=== PATIENT | female | born 1970 | race Caucasian/White ===

== ENCOUNTER 2020-11-01 13:33 | Emergency (ER) | payer BC, OTHER, SELFPAY ==
[2020-11-01 13:37] VITALS: BP 143/91; PULSE 82; RESP 16; TEMP 36.1; O2SAT 100
--- NOTE | 2020-11-01 14:25 | ED.GENADULT ---
HPI - General Adult General Chief complaint: Wound/Laceration Stated complaint: scar open Time Seen by Provider: 11/01/20 13:43 Source: patient Mode of arrival: ambulatory Limitations: no limitations History of Present Illness HPI narrative: Patient presents with chief complaint of erythema and some drainage that began yesterday in the area of her healed scar from 15 years ago. Patient reports some mild tenderness. She denies any fevers, chills, nausea, vomiting, diarrhea. Patient denies history of MRSA. Or diabetes. Patient is allergic to penicillin. Patient states she has been cleaning the area with alcohol and applying a bandage. Related Data Allergies Allergy/AdvReac Type Severity Reaction Status Date / Time Penicillins Allergy Unknown Verified 01/22/11 13:37 Review of Systems Review of Systems: Narrative: CONSTITUTIONAL: Denies fever, chills, or sweats. EYES: Denies visual changes, redness, or discharge. ENT: Denies rhinorrhea, congestion, sore throat, or otalgia. CARDIOVASCULAR: Denies chest pain, palpitations, or edema. RESPIRATORY: Denies cough or dyspnea. GASTROINTESTINAL: Denies abdominal pain, nausea, vomiting, or diarrhea. GENITOURINARY: Denies dysuria or hematuria. SKIN: Reports swelling and drainage denies rash or itching. MUSCULOSKELETAL: Denies back pain, joint pain, or myalgia. NEUROLOGIC: Denies headache, numbness, dizziness, or weakness. PSYCHIATRIC: Denies anxiety or depression. [facility] Family History Family History (Updated 04/21/14 @ 07:13 by DOCTOR UNKNOWN) Mother Hypertension Family history of gallbladder disease Father Carcinoma of colon Grandparent Carcinoma of colon Other Diabetes mellitus Family history of cardiovascular disease Social History Social History Alcohol intake: current Exam Narrative: Exam Narrative: GENERAL: Well-appearing, well-nourished, and in no acute distress. HEAD: Normocephalic, atraumatic. EYES: PERRLA and EOMI. ENT: Nares clear, no rhinorrhea or epistaxis. Mucous membranes moist. Oropharynx without tonsillar hypertrophy exudate or other lesions. Bilateral TMs pearly waldrop nonbulging NECK: Supple. No adenopathy or masses. CHEST: Clear to auscultation. No respiratory distress. No wheezes rales or rhonchi HEART: Regular rate and rhythm. EXTREMITIES: Normal range of motion. No edema. SKIN: Mild erythema to the right side of the abdominal crease in area where patient had horizontal csection. No palpable underlying abscess noted. 2 pustules areas with mild erythema that have opened. Minimal serous fluid drainage. warm, dry, no rash. NEURO: No focal deficits. Alert and oriented x3. PSYCH: Normal mood and affect. Course Vital Signs Vital signs: Vital Signs Temperature 97.0 F L 11/01/20 13:37 Pulse Rate 82 11/01/20 13:37 Respiratory Rate 16 11/01/20 13:37 Blood Pressure 143/91 H 11/01/20 13:37 Pulse Oximetry 100 11/01/20 13:37 Temperature 97.0 F L 11/01/20 13:37 Pulse Rate 82 11/01/20 13:37 Respiratory Rate 16 11/01/20 13:37 Blood Pressure 143/91 H 11/01/20 13:37 Pulse Oximetry 100 11/01/20 13:37 Medical Decision Making MDM Narrative Medical decision making narrative: Patient does not have any signs of abscess or fistula. Patient has very superficial cellulitis in the skin fold. Patient. Keep area clean and dry and prescribed antibiotic. Patient instructed to follow-up with her primary care for reevaluation of the area within 1 week. Patient instructed to return to the emergency department if she has any emergent symptoms. Differential Diagnosis Differential Diagnosis: Cellulitis, abscess, fistula, wound dehiscence Vital Signs Vital Signs: Vital Signs Temperature 97.0 F L 11/01/20 13:37 Pulse Rate 82 11/01/20 13:37 Respiratory Rate 16 11/01/20 13:37 Blood Pressure 143/91 H 11/01/20 13:37 Pulse Oximetry 100 11/01/20 13:37 Temperature 97.0 F L 11/01/20 13:37 P
== END 2020-11-01 15:21 | disposition home or self-care (01) ==
PROVIDERS: Emergency Provider Emergency Medicine; PCP Physician Assistant
DX: N73.2 Unspecified parametritis and pelvic cellulitis (principal)
CPT/HCPCS: 99283

== ENCOUNTER → 2021-04-27 13:30 | Outpatient (CLI) | payer BC, OTHER, SELFPAY ==
--- NOTE | ~2021-04-27 | MM_ITS ---
EXAMINATION: MM screening alcides BI w jennifer HISTORY: Screening TECHNIQUE: Craniocaudal and mediolateral oblique 3-D tomosynthesis images were obtained and synthetic 2-D images were generated. CAD analysis was submitted and interpreted. COMPARISON: No prior mammogram is available for comparison at this institution. BREAST PARENCHYMAL COMPOSITION: There are scattered areas of fibroglandular density. FINDINGS: There is a mass in the right breast with associated tissue marker, consistent with previous benign biopsy. There is no evidence of suspicious mass, calcification, or architectural distortion t o suggest malignancy in either breast. There has been no suspicious interval change. IMPRESSION: 1. No mammographic evidence of malignancy. 2. Recommend routine screening mammography in one year. BI-RADS Category 2: Benign finding(s). Reviewed, dictated and finalized at location A.
== END ==
PROVIDERS: PCP Physician Assistant; Visit Provider Physician Assistant
DX: Z12.31 Encounter for screening mammogram for malignant neoplasm of breast (principal)
CPT/HCPCS: 77063; 77067

== ENCOUNTER → 2022-08-30 15:24 | Outpatient (CLI) | payer BC, OTHER, SELFPAY ==
--- NOTE | ~2022-08-30 | MM_ITS ---
EXAMINATION: MM screening alcides BI w jennifer HISTORY: Screening mammogram TECHNIQUE: Craniocaudal and mediolateral oblique 3-D tomosynthesis images were obtained and synthetic 2-D images were generated. CAD analysis was submitted and interpreted. COMPARISON: 04/27/2021 BREAST PARENCHYMAL COMPOSITION: There are scattered areas of fibroglandular density. FINDINGS: RIGHT BREAST: There is a stable mass with biopsy change in the upper right breast. No suspicious mass , calcification, or architectural distortion are identified to suggest malignancy. There has been no suspicious interval change. LEFT BREAST: There is a possible mass in the middle third of the upper breast best appreciated 8.5 cm from the nipple on the mediolateral oblique view. IMPRESSION: 1. Possible left breast mass. 2. Additional mammographic views and possible breast ultrasound are recommended. BI-RADS Category 0: Incomplete: Needs additional imaging evaluation. Reviewed, dictated and finalized at location A. AMURAL DIRECTOR IMPRESSION: 1. Possible left breast mass. 2. Additional mammographic views and possible breast ultrasound are recommended . BI-RADS Category 0: Incomplete: Needs additional imaging evaluation.
== END ==
PROVIDERS: PCP Family Medicine; Visit Provider Advanced Practice Midwife
DX: Z12.31 Encounter for screening mammogram for malignant neoplasm of breast (principal); R92.8 Other abnormal and inconclusive findings on diagnostic imaging of breast
CPT/HCPCS: 77063; 77067

== ENCOUNTER → 2022-09-24 07:37 | Outpatient (CLI) | payer BC, SELFPAY ==
--- NOTE | ~2022-09-24 | MMUS_ITS ---
EXAMINATION: MM diagnostic alcides LT w jennifer, US breast LT limited HISTORY: Follow-up possible left breast mass TECHNIQUE: Additional 3-D tomosynthesis images of the left breast were performed and synthetic 2-D im ages were generated. CAD analysis was submitted and interpreted. High resolution Limited left breast ultrasound was performed. COMPARISON: 08/30/2022 and 04/27/2021 BREAST PARENCHYMAL COMPOSITION: Breast composed of scattered areas of fibroglandular density FINDINGS: MAMMOGRAPHIC FINDINGS: There are no suspicious masses, calcifications or architectural distortion in the left breast. The ar ea of asymmetry compresses with spot view. ULTRASOUND: Limited left breast ultrasound: Normal heterogeneous echotexture without focal solid or cystic mass. IMPRESSION: 1. No evidence for malignancy in the left breast. 2. Routine yearly screening mammogram and regular clinical breast examination are recommended. BI-RADS Category 1: Negative Reviewed, dictated and finalized at location A. F NURSE MIDWIFE IMPRESSION: 1. No evidence for malignancy in the left breast. 2. Routine yearly screening mammogram and regular clinical breast examination a re recommended. BI-RADS Category 1: Negative
== END ==
PROVIDERS: PCP Physician Assistant; Visit Provider Advanced Practice Midwife
DX: R92.8 Other abnormal and inconclusive findings on diagnostic imaging of breast (principal)
CPT/HCPCS: 76642; 77061; 77065; G0279

== ENCOUNTER 2023-07-28 02:26 | Day surgery (SDC) | payer OTHER, SELFPAY ==
[2023-07-10 13:51] VITALS: BMI 37.1
--- NOTE | 2023-07-25 10:45 | SUR.PREOP ---
Patient called regarding upcoming procedure. Reviewed preop instructions, appointment times, and procedure prep.
[2023-07-28 08:16] VITALS: BMI 37.8
[2023-07-28 08:19] VITALS: BP 109/67; PULSE 72; RESP 18; TEMP 36.7; O2SAT 100
[2023-07-28] MEDS: LACTATED RINGERS 1,000 ML 150 ML IV CONT (08:26)
--- NOTE | 2023-07-28 09:08 | PM.HPGS ---
History of Present Illness History of Present Illness Consent: Risks, benefits, and alternatives have been discussed and questions answered. Patient agrees to proceed with procedure. Chief complaint: fam hx of colon ca, hx of colon polyps Narrative: Meghann Johnson is a 53 year old female Presents for screening colonoscopy. Patient reports that her current weight appetite and bowel movements are normal. Patient denies abdominal pain. She has had no bleeding. Family history is significant both her father and paternal grandmother have had colon cancer. Patient was found to have adenomatous colon polyp in 2013 herself. Review of Systems Review of Systems: Review of systems noncontributory. [facility] Family History Family History (Updated 04/21/14 @ 07:13 by DOCTOR UNKNOWN) Mother Hypertension Family history of gallbladder disease Father Carcinoma of colon Grandparent Carcinoma of colon Other Diabetes mellitus Family history of cardiovascular disease Social History Social History Smoking status: Never smoker Alcohol intake: current Drinks per week: 2 Alcohol use details: wine Substance use type: does not use Living arrangements: with family Spiritual care concerns: No Meds Home Medications and Allergies Home Medications Medication Instructions Recorded Confirmed Type multivitamin with minerals-folic 1 tablet PO DAILY 07/10/23 07/28/23 History acid 0.4 mg tablet semaglutide (weight loss) 1.7 1.7 mg subcut WEEKLY 07/10/23 07/28/23 History mg/0.75 mL subcutaneous pen injector Allergies Allergy/AdvReac Type Severity Reaction Status Date / Time Penicillins Allergy Unknown Other Verified 07/28/23 08:14 Vital Signs Vital Signs - 24 hr 07/28/23 08:19 Temperature 98.0 F Pulse Rate 72 Respiratory Rate 18 Blood Pressure 109/67 Pulse Oximetry 100 Oxygen Delivery Room Air Exam Narrative: Physical exam reveals patient to be alert. Vital signs stable. HEENT exam is unremarkable. Patient is anicteric. Lungs are clear to auscultation and percussion. Heart is without murmur or extra sounds. Abdomen bowel sounds are present soft nontender with no organomegaly. Digital external rectal exam normal. Assessment and Plan Assessment and plan (1) Family history of colon cancer in father: Code(s): Z80.0 - Family history of malignant neoplasm of digestive organs Status: Acute Assessment and Plan: patient's father had colon cancer. As well as paternal grandmother. Plan for surveillance colonoscopy at 5 year intervals. (2) History of colon polyps: Code(s): Z86.010 - Personal history of colonic polyps Status: Acute Assessment and Plan: Patient does have a prior history of colon polyps in the past.
--- NOTE | 2023-07-28 09:16 | P.PNAN_ITS ---
Anes - Initial Pre Proc Eval Procedure: Operation Date: 07/28/23 09:30 Proposed Procedures p Colonoscopy - Vic Cavazos MD Date/Time: 07/28/23 09:16 Surgeon: Vic Cavazos MD Pre Op Diagnosis: fam hx of colon ca, hx of colon polyps Patient Data Age: 53 Gender: F Height: 1.68 m Weight: 106.3 kg Last Vital Signs Temp 98.0 F 07/28/23 08:19 Pulse 72 07/28/23 08:19 Resp 18 07/28/23 08:19 BP 109/67 07/28/23 08:19 Pulse Ox 100 07/28/23 08:19 O2 Del Method Room Air 07/28/23 08:19 Allergies Allergy/AdvReac Type Severity Reaction Status Date / Time Penicillins Allergy Unknown Other Verified 07/28/23 08:14 Home Medications Medication Instructions Recorded Confirmed Type multivitamin with minerals-folic 1 tablet PO DAILY 07/10/23 07/28/23 History acid 0.4 mg tablet semaglutide (weight loss) 1.7 1.7 mg subcut WEEKLY 07/10/23 07/28/23 History mg/0.75 mL subcutaneous pen injector Patient hx anesthesia problems: none Family hx anesthesia problems: none Results Review: All pre-operative results and documents have been reviewed as part of the pre- operative evaluation. [facility] Family History Family History (Updated 04/21/14 @ 07:13 by DOCTOR UNKNOWN) Mother Hypertension Family history of gallbladder disease Father Carcinoma of colon Grandparent Carcinoma of colon Other Diabetes mellitus Family history of cardiovascular disease Social History Social History Smoking status: Never smoker Alcohol intake: current Drinks per week: 2 Alcohol use details: wine Substance use type: does not use Living arrangements: with family Spiritual care concerns: No Anes - Eval Final PreProcedure Day of Procedure 07/28/23 09:16 Patient weight: obese Heart: regular rate and rhythm Lungs: clear to auscultation Airway: Mallampati scale class II Neurological: alert and oriented Last oral intake: >/= 8 hours ASA classification: II Emergent: no Anesthetic plan: proceed Anesthesia type and monitoring: general GIVS and standard monitoring Results Review: All pre-operative results and documents have been reviewed as part of the pre-operative evaluation. Informed Consent: The patient's anesthetic plan and its attendant risks and benefits were discussed with the patient/family/POA. Questions were solicited and answers provided to the satisfaction of the patient/family/POA.
[2023-07-28 10:02] VITALS: BP 101/55; PULSE 70; RESP 24; O2SAT 97
[2023-07-28 10:12] VITALS: BP 105/58; PULSE 69; RESP 21; O2SAT 98
[2023-07-28 10:22] VITALS: BP 110/69; PULSE 64; RESP 20; O2SAT 98
== END 2023-07-28 10:28 | disposition home or self-care (01) ==
PROVIDERS: PCP Physician Assistant; Visit Provider Internal Medicine Gastroenterology
PROC: 0DJD8ZZ Inspection of Lower Intestinal Tract, Via Natural or Artificial Opening Endoscopic (ICD-10-PCS; CPT 45378; principal; 2023-07-28 09:30)
DX: Z12.11 Encounter for screening for malignant neoplasm of colon (principal); Z86.010 Personal history of colon polyps; Z80.0 Family history of malignant neoplasm of digestive organs; K64.8 Other hemorrhoids
CPT/HCPCS: 45378; J2001; J2704; J7120

== ENCOUNTER → 2023-09-02 14:44 | Outpatient (CLI) | payer OTHER, SELFPAY ==
--- NOTE | ~2023-09-02 | MM_ITS ---
EXAMINATION: MM screening alcides BI w jennifer HISTORY: Screening mammogram TECHNIQUE: Craniocaudal and mediolateral oblique 3-D tomosynthesis images were obtained and synthetic 2-D images were generated. CAD analysis was submitted and interpreted. COMPARISON: 09/24/2022, 08/30/2022, 04/27/2021 BREAST PARENCHYMAL COMPOSITION: There are scattered areas of fibroglandular density. FINDINGS: There is a stable mass with biopsy change in the right breast. No suspicious mass, calcific ation, or architectural distortion are identified in either breast to suggest malignancy. There has b een no suspicious interval change. IMPRESSION: 1. No mammographic evidence of malignancy. 2. Recommend routine screening mammography in one year. BI-RADS Category 2: Benign finding(s). Reviewed, dictated and finalized at location A. TING COAL MINER
== END ==
PROVIDERS: PCP Advanced Practice Midwife; Visit Provider Advanced Practice Midwife
DX: Z12.31 Encounter for screening mammogram for malignant neoplasm of breast (principal)
CPT/HCPCS: 77063; 77067

== ENCOUNTER 2024-05-11 14:55 | Emergency (ER) | payer OTHER, SELFPAY ==
[2024-05-11 14:57] VITALS: BP 138/88; PULSE 93; RESP 20; TEMP 36.6; O2SAT 97
--- NOTE | 2024-05-11 16:27 | ED.SKABFB ---
HPI - Skin/Abscess/Foreign Bdy General Chief complaint: Skin/Abscess/Foreign Body Stated complaint: skin infection Time Seen by Provider: 05/11/24 16:16 Source: patient Mode of arrival: ambulatory Limitations: no limitations History of Present Illness HPI narrative: This is a 54-year-old female who presents to the ED for chief complaint of possible skin infection to the lower abdomen / pelvis area. Patient reports over the last couple today she has noticed an open sore that overlies her old for many years ago. States that she started to notice some a surrounding redness your the store today. It states that it really has not been overly painful or itchy. Denies discharge. Denies fevers, chills, nausea, vomiting Related Data Home Medications Medication Instructions Recorded Confirmed multivitamin with minerals-folic 1 tablet PO DAILY 07/10/23 07/28/23 acid 0.4 mg tablet semaglutide (weight loss) 1.7 1.7 mg subcut WEEKLY 07/10/23 07/28/23 mg/0.75 mL subcutaneous pen injector Allergies Allergy/AdvReac Type Severity Reaction Status Date / Time Penicillins Allergy Unknown Other Verified 07/28/23 08:14 Review of Systems Review of Systems: All systems as dictated in [facility] Family History Family History (Updated 04/21/14 @ 07:13 by DOCTOR UNKNOWN) Mother Hypertension Family history of gallbladder disease Father Carcinoma of colon Grandparent Carcinoma of colon Other Diabetes mellitus Family history of cardiovascular disease Social History Social History Smoking status: Never smoker Alcohol intake: current Drinks per week: 2 Alcohol use details: wine Substance use type: does not use Living arrangements: with family Spiritual care concerns: No Exam Narrative: GENERAL: Well-appearing, well-nourished, and in no acute distress. HEAD: Normocephalic, atraumatic. EYES: PERRLA and EOMI. ENT: Nares clear, no rhinorrhea or epistaxis. Mucous membranes moist. Oropharynx without tonsillar hypertrophy exudate or other lesions. NECK: Supple. No adenopathy or masses. CHEST: No respiratory distress. Clear to auscultation. No wheezes rales or rhonchi HEART: Regular rate and rhythm. No murmur heard. Normal peripheral pulses. ABDOMEN: Soft, nontender, nondistended, normal active bowel sounds. MSK: Normal range of motion. No edema. SKIN: 1 cm superficial open sore to the overlying mid area of the lower abdomen. surgical incision looks otherwise intact. There is no discharge. There is mild erythema but no swelling or focal fluid collection. No induration NEURO: Alert and oriented x4. No focal deficits. PSYCH: Normal mood and affect. Course Vital Signs Vital signs: Vital Signs Temperature 97.9 F 05/11/24 14:57 Pulse Rate 93 05/11/24 14:57 Respiratory Rate 20 05/11/24 14:57 Blood Pressure 138/88 05/11/24 14:57 Pulse Oximetry 97 05/11/24 14:57 Oxygen Delivery Room Air 05/11/24 14:57 Temperature 98.5 F 05/11/24 17:06 Pulse Rate 75 05/11/24 17:06 Respiratory Rate 18 05/11/24 17:06 Blood Pressure 125/74 05/11/24 17:06 Pulse Oximetry 100 05/11/24 17:06 Oxygen Delivery Room Air 05/11/24 14:57 MDM - Skin/Abscess/Foreign Bdy MDM Narrative Medical decision making narrative: This is a 54-year-old female who presents to the ED with chief complaint of possible skin infection to the lower abdomen. Vitals are normal. Exam shows very small superficial open wound and a skin fold with mild amount of surrounding erythema. Does not appear directly consistent with a yeast infection but very possible due to the location of the redness. No discharge noted. No abscess noted as well. Low suspicion for deep space infection. Cover with Rx for clindamycin as well as clotrimazole topically. Pt will be discharged in stable condition. Return precautions given and supportive measures discussed. Pt is understandi
[2024-05-11 17:06] VITALS: BP 125/74; PULSE 75; RESP 18; TEMP 36.9; O2SAT 100
== END 2024-05-11 17:07 | disposition home or self-care (01) ==
LOC: ANHED 16:39
PROVIDERS: Emergency Provider Physician Assistant; PCP Physician Assistant
DX: L03.311 Cellulitis of abdominal wall (principal); Z79.85 Long-term (current) use of injectable non-insulin antidiabetic drugs
CPT/HCPCS: 99283

== ENCOUNTER 2024-09-07 07:26 | Outpatient (CLI) | payer OTHER, SELFPAY ==
--- NOTE | ~2024-09-07 | MM_ITS ---
EXAMINATION: MM screening alcides BI w jennifer HISTORY: Screening mammogram TECHNIQUE: Craniocaudal and mediolateral oblique 3-D tomosynthesis images were obtained and synthetic 2-D images were generated. CAD analysis was submitted and interpreted. COMPARISON: 09/02/2023, 08/30/2022, 04/27/2021 BREAST PARENCHYMAL COMPOSITION:Not Dense. The breasts are almost entirely fatty FINDINGS: Stable small right breast mass with biopsy clip. No suspicious mass, calcification, or arch itectural distortion are identified in either breast to suggest malignancy. There has been no suspici ous interval change. IMPRESSION: No mammographic evidence of malignancy. Recommend routine screening mammography in one year. BI-RADS Category 2: Benign finding(s). Reviewed, dictated and finalized at [facility]. SITION OPERATOR
== END 2024-09-07 07:27 | disposition home or self-care (01) ==
PROVIDERS: PCP Nurse Practitioner; Visit Provider Physician Assistant
DX: Z12.31 Encounter for screening mammogram for malignant neoplasm of breast (principal)
CPT/HCPCS: 77063; 77067

== ENCOUNTER 2025-05-10 12:48 | Emergency (ER) | payer OTHER, SELFPAY ==
--- NOTE | ~2025-05-10 | XR_ITS ---
X-rays left ankle Indication: Pain Comparison: None Technique: 4 views left ankle Findings/Impression: 1. Tiny avulsion fracture lateral malleolus not excluded. 2. Otherwise no fracture or dislocation left ankle. Reviewed, dictated and finalized at location R.
--- NOTE | ~2025-05-10 | XR_ITS ---
EXAM/ PROCEDURE: XR wrist LT min 3V - 05/10/2025 13:15 CDT HISTORY: 55 years old Female with FALL COMPARISON: None available TECHNIQUE: Three view(s) FINDINGS/ IMPRESSION: There are no fractures or dislocations.Joint space narrowing, subchondral sclerosis, subchondral cyst formation and osteophyte formation, compatible with mild osteoarthritis. Reviewed, dictated and finalized at location N.
[2025-05-10 12:54] VITALS: BP 133/87; PULSE 79; RESP 18; TEMP 36.9; O2SAT 100
[2025-05-10] MEDS: KETOROLAC (*BKC) 60 MG/2 ML VIAL IM (13:50)
--- NOTE | 2025-05-10 13:54 | ED.FALL ---
HPI - Fall General Chief Complaint: Fall Stated Complaint: FALL Time Seen by Provider: 05/10/25 13:10 Source: patient Mode of arrival: ambulatory Limitations: no limitations History of Present Illness HPI Narrative: Patient is a 55-year-old female who presents the ED with report of left ankle and wrist pain. Patient reports she tripped in her bathroom and rolled her left ankle. She attempted to catch herself with her left arm. Complains of pain to her left wrist, left lateral ankle. Has had trouble bearing weight due to the pain. Reports swelling. Denies numbness. Denies head injury or LOC. Related Data Home Medications ?Medication ?Instructions ?Recorded ?Confirmed ?Last Taken ?Type multivitamin with minerals-folic 1 tablet PO DAILY 07/10/23 11/18/24 Unknown History acid 0.4 mg tablet Allergies Allergy/AdvReac Type Severity Reaction Status Date / Time Penicillins AdvReac Severe Anaphylactic Verified 05/10/25 12:50 Shock Review of Systems Review of Systems: All systems reviewed & are unremarkable except as noted in HPI. All systems reviewed & are unremarkable except as noted in HPI and below PMFSH Past Medical History Medical History Obesity, morbid, BMI 40.0-49.9 History of colon polyps Family history of colon cancer in father Surgical History Surgical History History of laparoscopic cholecystectomy Hx of partial thyroidectomy Family History Family History Mother Hypertension Family history of gallbladder disease Father Carcinoma of colon Family history of cardiovascular disease Grandparent Carcinoma of colon Congenital heart defect Grandparent Family history of cardiovascular disease Heart disease Acute myocardial infarction Grandparent Acute myocardial infarction Diabetes mellitus Sibling Hip joint replacement status Son Eczema Social History Social History Smoking status: Never smoker Alcohol intake: current Drinks per week: 2 Alcohol use details: wine Substance use type: does not use Living arrangements: with family Spiritual care concerns: No Exam Narrative: GENERAL: Well appearing, morbidly obese with BMI of 42.0, non-toxic, in no acute distress. HEAD: Normocephalic, atraumatic. RESPIRATORY: Airway patent, respirations nonlabored CARDIOVASCULAR: Regular rate and rhythm. Pedal pulses are intact and easily palpable. MUSCULOSKELETAL: Moves all extremities. No gross deformities. Swelling of proximal dorsal foot/anterior ankle, left lateral malleoli. Focal tenderness to palpation. No significant bruising. Sensation intact. Able to wiggle toes. SKIN: Warm, dry, normal color. NEURO: A&O X3. Speech clear. No ataxic movements. PSYCHIATRIC: Appropriate mood and affect. Normal interaction. Course Vital Signs Vital signs: Vital Signs Temperature 98.4 F 05/10/25 12:54 Pulse Rate 79 05/10/25 12:54 Respiratory Rate 18 05/10/25 12:54 Blood Pressure 133/87 05/10/25 12:54 Pulse Oximetry 100 05/10/25 12:54 Temperature 98.4 F 05/10/25 12:54 Pulse Rate 79 05/10/25 12:54 Respiratory Rate 18 05/10/25 12:54 Blood Pressure 133/87 05/10/25 12:54 Pulse Oximetry 100 05/10/25 12:54 MDM - Fall MDM Narrative Medical decision making narrative: Patient?s injury is consistent with musculoskeletal etiology. No signs of neurologic or vascular compromise on physical examination. Compartments are soft without signs of compartment syndrome. XR of left wrist negative. X-ray of left ankle with tiny avulsion fracture of lateral malleoli. This is consistent with exam and injury. Patient is felt to be stable for discharge home and further outpatient management and treatment. Placed in short leg posterior splint. Given crutches. Given ortho info for f/u. Pain medication sent to pharmacy. Given strict return precautions. Patient in agreement with plan. Discharged in stable condition Medical Records Attestation: I reviewed the patient's medical records. Imaging Data Attestation: I personally reviewed and interpreted this imaging study as follows: Discharge Plan Discharge Clinical Impression: Avulsion fracture of distal end of fibula, Fall from ground level, Left wrist sprain Patient Disposition: Home Condition: Stable Instructions: Antibiotic Form, Ankle Fracture (ED), Splint Care (ED), Wrist Sprain (ED) Additional Instructions: Follow-up with orthopedics for further evaluation. Call office today to make appointment. Wear splint until seen by orthopedics. Avoid weight-bearing until seen by orthopedics. Keep leg elevated. Recommend frequent icing. Recommend Tylenol and ibuprofen as needed for pain. [place] as needed for more severe pain. Return to the ED if you experience recurrent fall or injury, numbness, severe pain, or any other symptoms of concern. Patient Language: Mosotho Prescriptions: New hydrocodone-acetaminophen 5-325 mg tablet 1 tablet PO Q6H PRN (Reason: pain) Qty: 15 0RF No Action hydrocortisone 2.5 % cream 1 applic topical BID PRN (Reason: rash) Qty: 20 0RF multivit with min-folic acid [Adult One Daily Multivitamin] 0.4 mg Tablet 1 tablet PO DAILY Follow-up/Referrals: Kayode Barreto MD [Physician, Orthopedics] Referral Note: ORTHOPEDICS Janusz Almonte MD [Primary Care Provider, [facility]] Time of Disposition: 14:28
--- NOTE | 2025-05-10 15:06 | PC.NURSE ---
patient educated on discharge instructions- when discussing crutch use the patient states that they can not put any weight on their left wrist. discussing with Suyapa CAMPOS prior to discharge
== END 2025-05-10 14:35 | disposition home or self-care (01) ==
PROVIDERS: Emergency Provider Physician Assistant; PCP Family Medicine
DX: S82.62XA Displaced fracture of lateral malleolus of left fibula, initial encounter for closed fracture (principal); R93.6 Abnormal findings on diagnostic imaging of limbs; E66.01 Morbid (severe) obesity due to excess calories; Z68.41 Body mass index [BMI] 40.0-44.9, adult; E89.0 Postprocedural hypothyroidism; Z86.0100 Personal history of colon polyps, unspecified; Z90.49 Acquired absence of other specified parts of digestive tract; W01.0XXA Fall on same level from slipping, tripping and stumbling without subsequent striking against object, initial encounter; S63.502A Unspecified sprain of left wrist, initial encounter
CPT/HCPCS: 29515; 73110; 73610; 96372; 99284; J1885